=== PATIENT | female | born 1975 | race Caucasian/White ===

== ENCOUNTER → 2020-06-07 10:35 | Outpatient (CLI) | payer OTHER ==
[~2020-06-07 10:35] MED LIST: ABILIFY10 MG PO; ATARAX 25 MG TA25 MG PO; BACLOFEN10 MG PO; SEROQUEL100 MG PO
== END | disposition home or self-care (01) ==
LOC: D.RAD 10:35
DX: Z02.71 Encounter for disability determination (principal)